=== PATIENT | female | born 1950 | race Caucasian/White ===

== ENCOUNTER 2016-12-24 10:06 | Outpatient (CLI) | payer MEDICARE, OTHER ==
--- NOTE | 2016-12-25 18:45 | Mammography Report ---
DIGITAL SCREENING MAMMOGRAM: 12/24/2016 CLINICAL INDICATION: A 66-year-old with history of benign biopsy for screening. COMPARISON: 06/2015, 08/2014, 07/2013, 03/2012, 12/2010, 02/2008, 11/2006. TECHNIQUE: Routine CC and MLO projections were obtained of the breasts. FINDINGS: The breasts again demonstrate scattered fibroglandular densities bilaterally. Coarse and punctate, typically benign calcifications are present. Postbiopsy changes in the right breast are st able. No suspicious masses, clustered microcalcifications, or regions of architectural distortion ar e identified. IMPRESSION: BENIGN FINDINGS. RECOMMENDATION: Routine annual screening unless otherwise clinically indicated. BI-RADS category 2, benign findings. STANDARD QUALIFYING STATEMENTS 1. This examination was reviewed with the aid of Computer-Aided Detection (CAD). 2. A negative or benign imaging report should not delay biopsy if clinically suspicious findings are present. Consider surgical consultation if warranted. More than 5% of cancers are not identified by i maging. 3. Dense breasts may obscure an underlying neoplasm. JOB #: [id number] EXT JOB #:[id number]
== END 2016-12-24 10:07 | disposition home or self-care (01) ==
LOC: DI.N 10:06
PROVIDERS: ATTEND Physician Assistant Medical
DX: Z12.31 Encounter for screening mammogram for malignant neoplasm of breast (principal)
CPT/HCPCS: 77067

== ENCOUNTER 2016-12-25 07:30 | Outpatient (CLI) | payer MEDICARE, OTHER ==
[2016-12-25 12:46] LABS: BASOPHILS # (AUTO) 0.1 10^3/uL (0.0-0.1); BASOPHILS % (AUTO) 1.1 %; EOSINOPHILS # (AUTO) 0.1 10^3/uL (0.0-0.7); HCT - HEMATOCRIT 42.2 % (37.0-47.0); HGB - HEMOGLOBIN 14.2 g/dL (12.0-16.0); LYMPHOCYTES # (AUTO) 2.5 10^3/uL (1.5-3.5); LYMPHOCYTES % (AUTO) 38.7 %; MEAN CORPUSCULAR HEMOGLOBIN 29.9 pg (27.0-31.0); MEAN CORPUSCULAR HGB CONC 33.7 g/dL (32.0-36.0); MEAN CORPUSCULAR VOLUME 88.6 fL (81.0-99.0); MEAN PLATELET VOLUME 9.4 fL (7.9-10.8); MONOCYTES # (AUTO) 0.5 10^3/uL (0.0-1.0); MONOCYTES % (AUTO) 8.4 %; NEUTROPHILS # (AUTO) 3.2 10^3/uL (1.5-6.6); NEUTROPHILS % (AUTO) 49.8 %; NUCLEATED RED BLOOD CELLS AUTO 0.3 /100WBC; RED BLOOD COUNT 4.76 10^6/uL (4.20-5.40); RED CELL DISTRIBUTION WIDTH 14.1 % (12.0-15.0); UNCORRECTED WHITE BLOOD COUNT 6.5 x10^3/uL; WHITE BLOOD COUNT 6.5 x10^3/uL (4.8-10.8)
[2016-12-25 13:27] LABS: ALBUMIN/GLOBULIN RATIO 1.3 (1.0-2.2); BILIRUBIN,TOTAL 0.5 mg/dL (0.2-1.0); CALCIUM 9.2 mg/dL (8.5-10.3); CREATININE 0.9 mg/dL (0.4-1.0); POTASSIUM 3.9 mmol/L (3.5-5.0)
== END 2016-12-25 07:31 | disposition home or self-care (01) ==
LOC: LAB.WCP 07:30
PROVIDERS: ATTEND Physician Assistant Medical
DX: M81.0 Age-related osteoporosis without current pathological fracture (principal); I83.90 Asymptomatic varicose veins of unspecified lower extremity; N60.19 Diffuse cystic mastopathy of unspecified breast; N95.1 Menopausal and female climacteric states; N95.2 Postmenopausal atrophic vaginitis
CPT/HCPCS: 36415; 80053; 85025

== ENCOUNTER 2018-01-30 08:59 | Outpatient (CLI) | payer MEDICARE, OTHER ==
--- NOTE | 2018-02-02 13:15 | Mammography Report ---
Reason: BILAT SCREEN WITHOUT ANAYELI Procedure Date: 01/30/2018 Accession Number: [id number] / [id number] Procedure: MARIO - Screening Mammo Dig Bilat CPT Code: FULL RESULT: EXAM: Screening Mammo Dig Bilat DATE: 01/30/2018 9:48 AM CLINICAL HISTORY: Routine screening TECHNIQUE: Bilateral CC and MLO views were obtained. COMPARISON: 12/24/2016, 06/16/2015, 08/23/2014, 07/30/2013 and 03/19/2012 FINDINGS: There are scattered fibroglandular densities. There is no significant interval change on the right. No suspicious masses, clustered microcalcifications, or regions of architectural distortion are identified. On the left there is a small area of possible architectural distortion in the 12:00 position middle third versus incomplete compression. Suggest further evaluation by true lateral and spot compression views. Otherwise negative left breast. IMPRESSION: Negative right breast. Needs additional evaluation left breast. RECOMMENDATION: Spot compression and true lateral views left breast. BIRADS CATEGORY 0: Needs additional evaluation STANDARD QUALIFYING STATEMENTS: 1. This examination was reviewed with the aid of Computer-Aided Detection (CAD). 2. A negative or benign imaging report should not delay biopsy if clinically suspicious findings are present. Consider surgical consultation if warrented. More than 5% of cancers are not identified by imaging. 3. Dense breasts may obscure an underlying neoplasm.
== END 2018-01-30 09:00 | disposition home or self-care (01) ==
LOC: DI 08:59
DX: Z12.31 Encounter for screening mammogram for malignant neoplasm of breast (principal)
CPT/HCPCS: 77067

== ENCOUNTER 2018-02-20 13:08 | Outpatient (CLI) | payer MEDICARE, OTHER ==
--- NOTE | 2018-02-20 14:24 | Mammography Report ---
Reason: ABN MAMMO - LT SPEC VIEWS Procedure Date: 02/20/2018 Accession Number: [id number] / [id number] Procedure: MARIO - Diag Special Views Dig LT CPT Code: FULL RESULT: EXAM: Diag Special Views Dig LT DATE: 02/20/2018 2:09 PM CLINICAL HISTORY: Recalled from recent screening exam for possible left breast distortion. TECHNIQUE: Left CC and MLO and lateral views obtained COMPARISON: 01/30/2018 through 03/08/2008 FINDINGS: The breasts demonstrate scattered fibroglandular densities bilaterally. Area of possible distortion seen in the posterior left breast on recent screening exam does not persist with additional views consistent with summation of normal tissue. There are no suspicious masses, calcifications or areas of distortion. IMPRESSION: Negative examination RECOMMENDATION: Routine annual screening unless otherwise clinically indicated. BI-RADS CATEGORY 1: Negative STANDARD QUALIFYING STATEMENTS: 1. This examination was not reviewed with the aid of Computer-Aided Detection (CAD). 2. A negative or benign imaging report should not preclude biopsy if clinically suspicious findings are present. 3. Dense breasts may obscure an underlying neoplasm. 4. This examination was reviewed with the aid of 3D breast imaging (tomosynthesis).
== END 2018-02-20 13:09 | disposition home or self-care (01) ==
LOC: DI 13:08
PROVIDERS: ATTEND Physician Assistant Medical
DX: R92.8 Other abnormal and inconclusive findings on diagnostic imaging of breast (principal)

== ENCOUNTER 2019-02-23 10:10 | Outpatient (CLI) | payer MEDICARE, OTHER ==
--- NOTE | 2019-02-23 12:50 | Mammography Report ---
Reason: ROUTINE MAMMO Procedure Date: 02/23/2019 Accession Number: [id number] / [id number] Procedure: MGN - Screening Mammo Dig Bilat CPT Code: Final Report FULL RESULT: EXAM: Screening Mammo Dig Bilat DATE: 02/23/2019 10:34 AM CLINICAL HISTORY: Routine screening. No reported personal or family history of breast cancer. History of prior benign right breast biopsy. TECHNIQUE: (B) - Bilateral CC and MLO views were obtained. COMPARISON: 01/30/2018 through 12/31/2010. PARENCHYMAL PATTERN: (A) - The breasts demonstrate scattered fibroglandular densities bilaterally. FINDINGS: Bilateral breasts: There are no suspicious masses, calcifications, or areas of distortion. IMPRESSION: Negative examination. BI-RADS category 1. RECOMMENDATION: (ANNUAL) - Recommend routine annual screening mammography. BI-RADS CATEGORY: (1) - Negative. STANDARD QUALIFYING STATEMENTS: 1. This examination was not reviewed with the aid of Computer-Aided Detection (CAD). 2. A negative or benign imaging report should not preclude biopsy if clinically suspicious findings are present. 3. Dense breasts may obscure an underlying neoplasm. 4. This examination was reviewed without the aid of 3D breast imaging (tomosynthesis).
== END 2019-02-23 10:11 | disposition home or self-care (01) ==
LOC: DI.N 10:10
DX: Z12.31 Encounter for screening mammogram for malignant neoplasm of breast (principal)
CPT/HCPCS: 77067

== ENCOUNTER 2019-04-16 08:00 | Outpatient (CLI) | payer MEDICARE, OTHER | END 2019-04-16 23:59 | disposition home or self-care (01) | LOC: LAB.R 08:00 | PROVIDERS: ATTEND Family Medicine | DX: N39.0 Urinary tract infection, site not specified (principal); R39.15 Urgency of urination | CPT/HCPCS: 81002; 87086 ==

== ENCOUNTER 2019-06-03 08:00 | Outpatient (CLI) | payer MEDICARE, OTHER ==
[2019-06-03 12:11] LABS: BASOPHILS # (AUTO) 0.1 10^3/uL (0.0-0.1); BASOPHILS % (AUTO) 1.3 %; EOSINOPHILS # (AUTO) 0.1 10^3/uL (0.0-0.7); EOSINOPHILS % (AUTO) 1.9 %; HGB - HEMOGLOBIN 14.5 g/dL (12.0-16.0); LYMPHOCYTES # (AUTO) 2.4 10^3/uL (1.5-3.5); LYMPHOCYTES % (AUTO) 38.1 %; MEAN CORPUSCULAR HEMOGLOBIN 29.5 pg (27.0-31.0); MEAN CORPUSCULAR HGB CONC 32.4 g/dL (32.0-36.0); MEAN CORPUSCULAR VOLUME 91.2 fL (81.0-99.0); MONOCYTES # (AUTO) 0.6 10^3/uL (0.0-1.0); MONOCYTES % (AUTO) 8.9 %; NEUTROPHILS # (AUTO) 3.1 10^3/uL (1.5-6.6); NEUTROPHILS % (AUTO) 49.6 %; PLT - PLATELET COUNT 236 10^3/uL (130-450); RED BLOOD COUNT 4.91 10^6/uL (4.20-5.40); RED CELL DISTRIBUTION WIDTH 14.1 % (12.0-15.0); WHITE BLOOD COUNT 6.3 x10^3/uL (4.8-10.8)
[2019-06-03 12:34] LABS: ALBUMIN 3.9 g/dL (3.2-5.5); ALBUMIN/GLOBULIN RATIO 1.1 (1.0-2.2); ALKALINE PHOSPHATASE 42 IU/L (42-121); ALT ALANINE AMINOTRANSFERASE 20 IU/L (10-60); AST ASPARTATE AMINOTRANSFERASE 26 IU/L (10-42); BUN - BLOOD UREA NITROGEN 12 mg/dL (6-20); CALCIUM 9.4 mg/dL (8.5-10.3); CARBON DIOXIDE - CO2 26 mmol/L (21-32); CHLORIDE 107 mmol/L (101-111); CHOL/HDL RATIO 2.6 (<4.4); CHOLESTEROL 157 mg/dL; CREATININE 0.9 mg/dL (0.4-1.0); GFR - MDRD 62 (>89); GLUCOSE 100 mg/dL (70-100); HDL CHOLESTEROL 60 mg/dL; LDL CHOLESTEROL,CALCULATED 79 mg/dL; LDL/HDL RATIO 1.3 (<4.4); SODIUM 140 mmol/L (135-145); TOTAL PROTEIN 7.4 g/dL (6.7-8.2); VLDL CHOLESTEROL 18 mg/dL
== END 2019-06-03 23:59 | disposition home or self-care (01) ==
LOC: LAB.WCP 08:00
PROVIDERS: ATTEND Physician Assistant Medical
DX: R06.09 Other forms of dyspnea (principal); E03.9 Hypothyroidism, unspecified; N39.0 Urinary tract infection, site not specified
CPT/HCPCS: 36415; 80053; 80061; 83721; 84443; 85025

== ENCOUNTER 2019-06-03 09:26 | Outpatient (CLI) | payer MEDICARE, OTHER ==
--- NOTE | 2019-06-03 16:13 | XRAY Report ---
Reason: DYSPNEA ON EXERTION Procedure Date: 06/03/2019 Accession Number: [id number] / [id number] Procedure: WCP - Chest 2 View X-Ray CPT Code: 18625 Final Report FULL RESULT: EXAM: CHEST RADIOGRAPHY EXAM DATE: 06/03/2019 09:26 AM. CLINICAL HISTORY: DYSPNEA ON EXERTION. COMPARISON: None. TECHNIQUE: 2 views. FINDINGS: Lungs/Pleura: No focal opacities evident. No pleural effusion. No pneumothorax. Normal volumes. Mediastinum: The cardiac silhouette size is normal. Tortuous thoracic aorta. Other: Decreased bone mineralization with multilevel thoracic spondylosis. IMPRESSION: No radiographic evidence of acute cardiopulmonary disease. RADIA
== END 2019-06-03 23:59 | disposition home or self-care (01) ==
LOC: DI.WCP 09:26
PROVIDERS: ATTEND Physician Assistant Medical
DX: R06.09 Other forms of dyspnea (principal); E03.9 Hypothyroidism, unspecified; N39.0 Urinary tract infection, site not specified
CPT/HCPCS: 36415; 71046; 80053; 80061; 83721; 84443; 85025

== ENCOUNTER 2019-06-10 10:24 | Outpatient (CLI) | payer MEDICARE, OTHER | END 2019-06-10 10:25 | disposition home or self-care (01) | LOC: DI 10:24 | PROVIDERS: ATTEND Physician Assistant Medical | DX: R06.09 Other forms of dyspnea (principal) | CPT/HCPCS: 93306 ==

== ENCOUNTER 2020-01-21 07:00 | Outpatient (CLI) | payer MEDICARE, OTHER | END 2020-01-21 23:59 | disposition home or self-care (01) | LOC: LAB.R 07:00 | PROVIDERS: ATTEND Nurse Practitioner Family | DX: R39.15 Urgency of urination (principal) | CPT/HCPCS: 87086 ==

== ENCOUNTER 2020-03-20 10:16 | Outpatient (CLI) | payer MEDICARE, OTHER ==
--- NOTE | 2020-03-21 08:04 | Mammography Report ---
BILATERAL DIGITAL SCREENING MAMMOGRAM 3D/2D: 03/20/2020 CLINICAL: Routine screening. Comparison is made to exams dated: 02/23/2019 mammogram, 02/20/2018 mammogram, 01/30/2018 mammogram, 12/24/2016 mammogram, 06/16/2015 mammogram, and 08/23/2014 mammogram - [facility]. The tissue of both breasts is predominantly fatty. There is a new 0.7 cm focal asymmetry with an indistinct margin in the right breast middle depth supe rior region adjacent to a scar marker seen on the mediolateral oblique view only. No other significant masses, calcifications, or other findings are seen in either breast. IMPRESSION: INCOMPLETE: NEEDS ADDITIONAL IMAGING EVALUATION The new 0.7 cm focal asymmetry in the right breast is indeterminate. Additional views with possible ultrasound are recommended. This exam was interpreted at Station ID: [id number]. NOTE: For mammograms, a report in lay terms will be sent to the patient. Approximately 15% of breast malignancies will not be visualized mammographically. In the management of a palpable breast mass, a negative mammogram must not discourage biopsy of a clinically suspicious lesion. Electronically Signed By: Piero Quinteros acr/:03/20/2020 14:47:19 ACR BI-RADS Category 0: Incomplete 3340F PARENCHYMAL PATTERN: (F) - The breast(s) demonstrate(s) diffuse fatty replacement. BI-RADS CATEGORY: (0) - 0 Mammo and [place] [id number] Immediate follow-up LATERALITY: (L)
== END 2020-03-20 10:17 | disposition home or self-care (01) ==
LOC: DI.N 10:16
DX: Z12.31 Encounter for screening mammogram for malignant neoplasm of breast (principal); R92.8 Other abnormal and inconclusive findings on diagnostic imaging of breast

== ENCOUNTER 2020-05-01 11:17 | Outpatient (CLI) | payer MEDICARE, OTHER ==
--- NOTE | 2020-05-02 09:06 | Mammography Report ---
UNILATERAL RIGHT DIGITAL DIAGNOSTIC MAMMOGRAM 3D/2D: 05/01/2020 CLINICAL: Patient returns today to evaluate a focal asymmetry in the right breast. Comparison is made to exams dated: 03/20/2020 mammogram, 02/23/2019 mammogram, 02/20/2018 mammogram, a nd 01/30/2018 mammogram - [facility]. The tissue of right breast is predominantly fatty. Redemonstration of previously described 0.6 cm focal asymmetry with an indistinct margin in the right breast middle depth superior region seen on the mediolateral oblique view only. This is less promin ent and decreased in size. No other significant masses or calcifications are seen in the breast. IMPRESSION: INCOMPLETE: NEEDS ADDITIONAL IMAGING EVALUATION The 0.6 cm focal asymmetry in the right breast is indeterminate. An ultrasound is recommended for fu rther evaluation and is scheduled to immediately follow this examination. This exam was interpreted at Station ID: [id number]. NOTE: For mammograms, a report in lay terms will be sent to the patient. Approximately 15% of breast malignancies will not be visualized mammographically. In the management of a palpable breast mass, a negative mammogram must not discourage biopsy of a clinically suspicious lesion. Electronically Signed By: Matias Presley M.D. aty/:05/01/2020 12:36:39 ACR BI-RADS Category 0: Incomplete 3340F PARENCHYMAL PATTERN: (F) - The breast(s) demonstrate(s) diffuse fatty replacement. BI-RADS CATEGORY: (0) - 0 Ultrasound [id number] Immediate follow-up LATERALITY: (R)
--- NOTE | 2020-05-02 09:06 | Ultrasound Report ---
LIMITED ULTRASOUND OF RIGHT BREAST: 05/01/2020 CLINICAL: Patient returns today to evaluate a focal asymmetry in the right breast. Comparison is made to exams dated: 05/01/2020 mammogram, 03/20/2020 mammogram, 02/23/2019 mammogram, 04/22/2017 mammogram, 01/30/2018 mammogram, and 12/24/2016 mammogram - [facility]. Real-time ultrasound of the right breast 8-10 o'clock region was performed. Brink scale images of the real-time examination were reviewed. No significant abnormalities were seen sonographically in the right breast. The asymmetry seen on ma mmographic evaluation is in close proximity to site of previous benign excisional biopsy. There are s cattered foci of dense fibroglandular tissue in this area. IMPRESSION: PROBABLY BENIGN There is no abnormality seen in the right breast to correspond with the mammography finding which lik anamaria represents normal dense fibroglandular tissue. A follow-up right mammogram with possible right ultrasound in 6 months is recommended to demonstrate stability. Findings and recommendations were conveyed to the patient during today's evaluation. This exam was interpreted at Station ID: [id number]. Electronically Signed By: Matias Presley M.D. aty/:05/01/2020 12:39:37 Ultrasound BI-RADS: 3 Probably benign BI-RADS CATEGORY: (3) - 3 Mammo and [place] [id number] 6 month follow-up LATERALITY: (R)
== END 2020-05-01 11:18 | disposition home or self-care (01) ==
LOC: DI 11:17
PROVIDERS: ATTEND Physician Assistant Medical
DX: R92.8 Other abnormal and inconclusive findings on diagnostic imaging of breast (principal)

== ENCOUNTER 2020-06-05 09:55 | Outpatient (CLI) | payer MEDICARE, OTHER ==
[2020-06-05] MEDS ORDERED: IOVERSOL 320 100 ML VIAL IVP ONE ×2 (10:14→14:35)
--- NOTE | 2020-06-05 15:56 | CT Report ---
PROCEDURE: CHEST W INDICATIONS: DYSPNEA ON EXERTION CONTRAST: IV CONTRAST: Optiray 320 ml: 100 PO CONTRAST: *NO PO CONTRAST TECHNIQUE: After the administration of intravenous contrast, 5 mm thick sections acquired from the pulmonary api chanelle to the posterior costophrenic angles. 7 mm thick coronal MIP reformats were acquired. For radia tion dose reduction, the following was used: automated exposure control, adjustment of mA and/or kV according to patient size. COMPARISON: None. FINDINGS: Image quality: Excellent. Lungs and pleura: There is a 7 mm spiculated nodule in the extreme left lung base. Reference image 18 05/18. No acute air space opacities. No pleural effusions or pneumothorax. Central and peripheral ai rways are patent and normal in caliber. Mediastinum: Heart size is normal. No pericardial effusion. No mediastinal or hilar adenopathy by size criteria. Thoracic aorta and central pulmonary arteries are normal in size. Esophagus is gayle l in caliber. No hiatal hernia. Bones and chest wall: No suspicious bony lesions. No vertebral body compression fractures. No axil michelle or supraclavicular adenopathy by size criteria. Thyroid gland is somewhat heterogeneous with a small, subcentimeter right thyroid nodule.. Abdomen: Visualized upper abdominal solid organs appear normal. Upper abdominal bowel loops are nor mal in caliber. IMPRESSION: 1. Spiculated 7 mm nodule, left lower lobe. 2. No other pulmonary nodules. 3. No evidence of acute pulmonary process. Comment: Due to the spiculated nature of the nodule, it is concerning for a possible subcentimeter br onchogenic carcinoma. At this size, it may be too small to demonstrate increased FDG activity by PET/ CT. Therefore, would recommend 3 month follow-up CT. If the 3 month follow-up CT is stable, would fol low-up again in 12 months time. Reviewed by: Handy Giron MD on 06/05/2020 3:54 PM PST Approved by: Handy Giron MD on 06/05/2020 3:54 PM PST Station ID: [id number]
== END 2020-06-05 09:56 | disposition home or self-care (01) ==
LOC: DI 09:55
PROVIDERS: ATTEND Physician Assistant Medical
DX: R06.09 Other forms of dyspnea (principal); R91.1 Solitary pulmonary nodule
CPT/HCPCS: 36415; 71260; 80048; Q9967

== ENCOUNTER 2020-07-13 07:20 | Outpatient (CLI) | payer MEDICARE, OTHER ==
[2020-07-13 12:02] LABS: ALBUMIN/GLOBULIN RATIO 1.2 (1.0-2.2); ALKALINE PHOSPHATASE 51 IU/L (42-121); ALT ALANINE AMINOTRANSFERASE 25 IU/L (10-60); AST ASPARTATE AMINOTRANSFERASE 29 IU/L (10-42); BILIRUBIN,TOTAL 0.5 mg/dL (0.2-1.0); BUN - BLOOD UREA NITROGEN 13 mg/dL (6-20); CALCIUM 9.3 mg/dL (8.5-10.3); CARBON DIOXIDE - CO2 27 mmol/L (21-32); CHLORIDE 105 mmol/L (101-111); CHOL/HDL RATIO 2.6 (<4.4); CHOLESTEROL 159 mg/dL; GFR - MDRD 55 (>89); GLUCOSE 105 mg/dL (70-100); HDL CHOLESTEROL 62 mg/dL; LDL CHOLESTEROL,CALCULATED 82 mg/dL; LDL/HDL RATIO 1.3 (<4.4); POTASSIUM 4.1 mmol/L (3.5-5.0); SODIUM 141 mmol/L (135-145); TOTAL PROTEIN 7.4 g/dL (6.7-8.2); TRIGLYCERIDES 76 mg/dL; VLDL CHOLESTEROL 15 mg/dL
[2020-07-13 12:07] LABS: BASOPHILS # (AUTO) 0.1 10^3/uL (0.0-0.1); BASOPHILS % (AUTO) 1.2 %; EOSINOPHILS # (AUTO) 0.2 10^3/uL (0.0-0.7); EOSINOPHILS % (AUTO) 3.3 %; HCT - HEMATOCRIT 44.4 % (37.0-47.0); HGB - HEMOGLOBIN 14.4 g/dL (12.0-16.0); LYMPHOCYTES # (AUTO) 1.6 10^3/uL (1.5-3.5); LYMPHOCYTES % (AUTO) 31.4 %; MEAN CORPUSCULAR HEMOGLOBIN 29.3 pg (27.0-31.0); MEAN CORPUSCULAR HGB CONC 32.4 g/dL (32.0-36.0); MEAN CORPUSCULAR VOLUME 90.2 fL (81.0-99.0); MEAN PLATELET VOLUME 10.5 fL (7.9-10.8); MONOCYTES # (AUTO) 0.9 10^3/uL (0.0-1.0); MONOCYTES % (AUTO) 16.7 %; NEUTROPHILS # (AUTO) 2.4 10^3/uL (1.5-6.6); NEUTROPHILS % (AUTO) 46.8 %; PLT - PLATELET COUNT 212 10^3/uL (130-450); RED BLOOD COUNT 4.92 10^6/uL (4.20-5.40); RED CELL DISTRIBUTION WIDTH 14.2 % (12.0-15.0); WHITE BLOOD COUNT 5.1 x10^3/uL (4.8-10.8)
--- OUTSIDE RECORDS SUMMARY | 2020-07-19 02:18 | EXTERNAL MEDICAL SUMMARY RPT | Continuity of Care Document ---
:1950 Demographics Phone Unavailable Preferred Language Vincentian Marital Status Unknown Quaker Affiliation Unknown Race Unknown Ethnic Group Unknown Author Organization [place] Address [address] [place] [address] Phone Care Team Providers Name Role Phone Miscellaneous Unavailable Unavailable Problems date description facility [id number] Contact with and (suspected) exposure t o other viral [facility] communi [id number] Encounter for screening for other viral diseases [facility] Social History date description facility [id number]
== END 2020-07-13 23:59 | disposition home or self-care (01) ==
LOC: LAB.WCP 07:20
PROVIDERS: ATTEND Physician Assistant Medical
DX: R06.09 Other forms of dyspnea (principal)
CPT/HCPCS: 36415; 80053; 80061; 83721; 85025

== ENCOUNTER 2020-09-07 10:39 | Outpatient (CLI) | payer MEDICARE, OTHER ==
[2020-09-07 11:05] LABS: CALCIUM 9.3 mg/dL (8.5-10.3); CREATININE 0.8 mg/dL (0.4-1.0); POTASSIUM 4.7 mmol/L (3.5-5.0)
[2020-09-07] MEDS ORDERED: IOVERSOL 320 100 ML VIAL IVP ONE ×2 (12:22→12:57)
--- NOTE | 2020-09-07 17:14 | CT Report ---
PROCEDURE: CHEST W INDICATIONS: PULMONARY NODULE CONTRAST: IV CONTRAST: Optiray 320 ml: 100 PO CONTRAST: *NO PO CONTRAST TECHNIQUE: After the administration of intravenous contrast, 5 mm thick sections acquired from the pulmonary api chanelle to the posterior costophrenic angles. 7 mm thick coronal MIP reformats were acquired. For radia tion dose reduction, the following was used: automated exposure control, adjustment of mA and/or kV according to patient size. COMPARISON: 06/05/2020. FINDINGS: Image quality: Excellent. Lungs and pleura: A mildly spiculated subpleural pulmonary nodule in the left lower lobe is minimally increased in size compared to the previous study. On previous image 182/4 it measured 7 mm. On curre nt image 212/6 and measures 8 mm. Mediastinum: Heart size is normal. No pericardial effusion. No mediastinal or hilar adenopathy by size criteria. Thoracic aorta and central pulmonary arteries are normal in size. Esophagus is gayle l in caliber. No hiatal hernia. Bones and chest wall: No suspicious bony lesions. No vertebral body compression fractures. No axil michelle or supraclavicular adenopathy by size criteria. The thyroid has a tiny 3 mm nodule in the anteri or aspect of the right lobe. Abdomen: Visualized upper abdominal solid organs appear normal. Upper abdominal bowel loops are nor mal in caliber. IMPRESSION: Slight interval growth of a mildly spiculated left lower lobe pulmonary nodule over the past 3 months , previously measuring 7 mm and now measuring 8 mm. This is suspicious for a very small bronchogenic carcinoma. Current options include PET CT versus CT guided biopsy versus 3 month follow-up chest CT v ersus wedge resection. Comment: The nodule is at the lower limits of size for PET CT (indicated for nodules of 8 mm or great er), and is at the lower size limits of likely technical success for CT-guided biopsy. Would recommen d PET/CT instead of CT biopsy at this point. CLINICAL RECOMMENDATION STATEMENTS: In patients <35 years with an ITN detected on CT, MRI, or extrathyroidal ultrasound, the Committee re commends further evaluation with dedicated thyroid ultrasound if the nodule is ?1 cm and has no suspi cious imaging features, and if the patient has normal life expectancy. In patients ?35 years with an ITN detected on CT, MRI, or extrathyroidal ultrasound, the Committee re commends further evaluation with dedicated thyroid ultrasound if the nodule is ?1.5 cm and has no keith picious imaging features, and if the patient has normal life expectancy. (ACR, 2014) Reviewed by: Handy Giron MD on 09/07/2020 5:13 PM PDT Approved by: Handy Giron MD on 09/07/2020 5:13 PM PDT Station ID: [id number]
== END 2020-09-07 10:40 | disposition home or self-care (01) ==
LOC: LAB 10:39 → DI 10:40
PROVIDERS: ATTEND Physician Assistant Medical
DX: J98.4 Other disorders of lung (principal); R91.1 Solitary pulmonary nodule
CPT/HCPCS: 36415; 71260; 80048; Q9967

== ENCOUNTER 2020-09-14 08:00 | Outpatient (CLI) | payer MEDICARE, OTHER | END 2020-09-14 23:59 | disposition home or self-care (01) | LOC: LAB.WCP 08:00 | PROVIDERS: ATTEND Physician Assistant Medical | DX: R06.02 Shortness of breath (principal) | CPT/HCPCS: 36415; 83880 ==

== ENCOUNTER 2021-01-17 08:52 | Outpatient (CLI) | payer MEDICARE, OTHER ==
--- NOTE | 2021-01-18 11:49 | Mammography Report ---
BILATERAL DIGITAL DIAGNOSTIC MAMMOGRAM 3D/2D: 01/17/2021 CLINICAL: Patient returns for a 6 month follow up of the right breast. Comparison is made to exams dated: 05/01/2020 ultrasound, 05/01/2020 mammogram, 03/20/2020 mammogram, 1 04/25/2018 mammogram, 02/20/2018 mammogram, and 01/30/2018 mammogram - [facility]. T here are scattered fibroglandular elements in both breasts. The oval asymmetry with indistinct margins in the right breast middle depth superior region seen on t he mediolateral oblique view only is less prominent compared to the prior study from 03/20/2020 and si milar to the previous study from 02/23/2019. No other significant masses, calcifications, or other findings are seen in either breast. IMPRESSION: BENIGN There is no mammographic evidence of malignancy. A 1 year screening mammogram is recommended. This exam was interpreted at Station ID: [id number]. NOTE: For mammograms, a report in lay terms will be sent to the patient. Approximately 15% of breast malignancies will not be visualized mammographically. In the management of a palpable breast mass, a negative mammogram must not discourage biopsy of a clinically suspicious lesion. Electronically Signed By: Tripp Arce M.D. ddp/:01/17/2021 09:30:24 ACR BI-RADS Category 2: Benign Finding(s) 3342F PARENCHYMAL PATTERN: (A) - The breast(s) demonstrate(s) scattered fibroglandular densities. BI-RADS CATEGORY: (2) - 2 RECOMMENDATION: (ANNUAL) - Recommend routine annual screening mammography. [id number] 1 year screening LATERALITY: (B)
== END 2021-01-17 08:53 | disposition home or self-care (01) ==
LOC: DI 08:52
PROVIDERS: ATTEND Physician Assistant Medical
DX: R92.8 Other abnormal and inconclusive findings on diagnostic imaging of breast (principal)

== ENCOUNTER 2021-01-24 09:22 | Outpatient (CLI) | payer MEDICARE, OTHER ==
[2021-01-24 10:00] LABS: CREATININE 0.8 mg/dL (0.4-1.0)
--- NOTE | 2021-01-24 11:28 | CT Report ---
PROCEDURE: CHEST W INDICATIONS: PULMONARY NODULE CONTRAST: IV CONTRAST: Optiray 320 ml: 100 PO CONTRAST: *NO PO CONTRAST TECHNIQUE: After the administration of intravenous contrast, 1 mm axial images were acquired from the pulmonary apices through the posterior costophrenic angles. Axial 5 mm soft tissue kernel reconstructions were performed as well as 8 mm axial MIP and coronal and sagittal 5 mm reformations. For radiation dose reduction, the following was used: automated exposure control, adjustment of mA and/or kV according to patient size. COMPARISON: Prior studies dating back to June 05, 2020 FINDINGS: CT CHEST: Thyroid: Homogeneous. Vasculature: The thoracic aorta and arch vasculature have a normal contrasted appearance and are norm al size and contour. No evidence for dissection. Heart: No cardiomegaly or significant pericardial effusion. Mediastinum: No pathologic lymph node enlargement by size criteria. Small hiatal hernia. Lung/pleura: No pleural effusion, consolidation, or pneumothorax. Stable 7.2 mm nodule in the left lo wer lobe (i.e. series 4, image 213). Tracheobronchial tree: Patent. Upper abdomen: No significant abnormality. Decreased attenuation liver, suggesting hepatic steatosis. Bones: No significant abnormality. 1.5 cm lucent lesion in the right aspect of L1, most consistent wi th a hemangioma. Chest wall: The chest wall and axilla are within normal limits. IMPRESSION: Stable pulmonary nodule in the left lower lobe. Fleischner criteria for lung follow-up: >6-8Initial f ollow-up CT at 6-12 mo, then 18-24 mo if no change. Initial follow-up CT at 3-6 mo, then 9-12 mo and 24 mo if no change. Reviewed by: Umesh Schofield MD on 01/24/2021 11:27 AM PDT Approved by: Umesh Schofield MD on 01/24/2021 11:27 AM PDT Station ID: [id number]
[2021-01-24] MEDS ORDERED: IOVERSOL 320 100 ML VIAL IVP ONE (14:00)
== END 2021-01-24 09:23 | disposition home or self-care (01) ==
LOC: LAB 09:22
PROVIDERS: ATTEND Physician Assistant Medical
DX: R91.1 Solitary pulmonary nodule (principal)
CPT/HCPCS: 36415; 82565

== ENCOUNTER 2021-06-23 09:38 | Outpatient (CLI) | payer MEDICARE, OTHER ==
[2021-06-23] MEDS ORDERED: IOVERSOL 320 100 ML VIAL IVP ONE ×2 (10:00→10:28)
--- NOTE | 2021-06-23 14:28 | CT Report ---
PROCEDURE: CHEST W INDICATIONS: PULMONARY NODULE CONTRAST: IV CONTRAST: Optiray 320 ml: 100 PO CONTRAST: *NO PO CONTRAST TECHNIQUE: After the administration of intravenous contrast, 1 mm axial images were acquired from the pulmonary apices through the posterior costophrenic angles. Axial 5 mm soft tissue kernel reconstructions were performed as well as 8 mm axial MIP and coronal and sagittal 5 mm reformations. For radiation dose reduction, the following was used: automated exposure control, adjustment of mA and/or kV according to patient size. COMPARISON: CT chest 01/24/2021, 06/05/2020. FINDINGS: Image quality: Excellent. Lungs and pleura: Left lower lobe pulmonary nodule measuring 0.8 x 0.7 cm, (4/193), previously 0.7 x 0.5 cm on 06/05/2020. No new pulmonary nodules. Minimal deep tendon atelectasis. No acute air space o pacities. No pleural effusions or pneumothorax. Central and peripheral airways are patent and gayle l in caliber. Mediastinum: Heart size is normal. No pericardial effusion. No mediastinal or hilar adenopathy by size criteria. Thoracic aorta and central pulmonary arteries are normal in size. Esophagus is gayle l in caliber. Small hiatal hernia. Bones and chest wall: No suspicious bony lesions. Benign L1 intraosseous hemangioma. No vertebral jess dy compression fractures. No axillary or supraclavicular adenopathy by size criteria. The thyroid i s normal in size and there are no incidental findings. Abdomen: Visualized upper abdominal solid organs appear normal. Upper abdominal bowel loops are nor mal in caliber. Hepatic steatosis. IMPRESSION: 1. Left lower lobe pulmonary nodule measuring 0.8 cm. This is slightly increased in size compared to last year May 2020. -Recommend follow-up CT chest in 6-12 months depending on clinical risk factors. 2. No adenopathy. Reviewed by: Kyle Moore MD on 06/23/2021 1:26 PM [facility] Approved by: Kyle Moore MD on 06/23/2021 1:26 PM [facility] Station ID: [id number]
== END 2021-06-23 09:39 | disposition home or self-care (01) ==
LOC: LAB 09:38
PROVIDERS: ATTEND Physician Assistant Medical
DX: R91.1 Solitary pulmonary nodule (principal)
CPT/HCPCS: 36415; 71260; 82565; Q9967

== ENCOUNTER 2021-07-16 07:59 | Outpatient (CLI) | payer MEDICARE, OTHER ==
[2021-07-16 12:18] LABS: BASOPHILS # (AUTO) 0.1 10^3/uL (0.0-0.1); BASOPHILS % (AUTO) 0.9 %; EOSINOPHILS # (AUTO) 0.2 10^3/uL (0.0-0.7); EOSINOPHILS % (AUTO) 2.7 %; HCT - HEMATOCRIT 44.2 % (37.0-47.0); HGB - HEMOGLOBIN 14.6 g/dL (12.0-16.0); LYMPHOCYTES # (AUTO) 1.8 10^3/uL (1.5-3.5); LYMPHOCYTES % (AUTO) 26.2 %; MEAN CORPUSCULAR HEMOGLOBIN 29.6 pg (27.0-31.0); MEAN CORPUSCULAR VOLUME 89.7 fL (81.0-99.0); MEAN PLATELET VOLUME 10.8 fL (7.9-10.8); MONOCYTES # (AUTO) 0.7 10^3/uL (0.0-1.0); MONOCYTES % (AUTO) 10.3 %; NEUTROPHILS % (AUTO) 59.5 %; PLT - PLATELET COUNT 222 10^3/uL (130-450); RED BLOOD COUNT 4.93 10^6/uL (4.20-5.40); RED CELL DISTRIBUTION WIDTH 13.9 % (12.0-15.0); WHITE BLOOD COUNT 6.7 x10^3/uL (4.8-10.8)
[2021-07-16 12:42] LABS: ALBUMIN 3.9 g/dL (3.2-5.5); ALBUMIN/GLOBULIN RATIO 1.1 (1.0-2.2); BILIRUBIN,TOTAL 0.9 mg/dL (0.2-1.0); CALCIUM 9.3 mg/dL (8.5-10.3); CREATININE 0.9 mg/dL (0.4-1.0); POTASSIUM 4.4 mmol/L (3.5-5.0); TOTAL PROTEIN 7.3 g/dL (6.7-8.2)
[2021-07-16 12:49] LABS: THYROID STIMULATING HORMONE 3.35 uIU/mL (0.34-5.60)
== END 2021-07-16 08:00 | disposition home or self-care (01) ==
LOC: LAB.N 07:59
PROVIDERS: ATTEND Physician Assistant Medical
DX: E03.9 Hypothyroidism, unspecified (principal); R73.9 Hyperglycemia, unspecified; R91.1 Solitary pulmonary nodule
CPT/HCPCS: 36415; 80053; 84443; 85025

== ENCOUNTER 2022-01-10 08:09 | Outpatient (CLI) | payer MEDICARE, OTHER ==
[2022-01-10 08:30] LABS: CREATININE 0.8 mg/dL (0.4-1.0)
--- NOTE | 2022-01-10 12:50 | CT Report ---
PROCEDURE: CHEST W INDICATIONS: PULMONARY NODULE CONTRAST: IV CONTRAST: Optiray 320 ml: 100 PO CONTRAST: *NO PO CONTRAST TECHNIQUE: After the administration of intravenous contrast, 1 mm axial images were acquired from the pulmonary apices through the posterior costophrenic angles. Axial 5 mm soft tissue kernel reconstructions were performed as well as 8 mm axial MIP and coronal and sagittal 5 mm reformations. For radiation dose reduction, the following was used: automated exposure control, adjustment of mA and/or kV according to patient size. COMPARISON: CT chest 06/23/2021, 01/24/2021, 09/07/2020, 06/05/2020, 06/03/2019, 05/01/2020 FINDINGS: Image quality: Excellent. Lungs and pleura: No acute air space opacities. No pleural effusions or pneumothorax. Central and peripheral airways are patent and normal in caliber. Previous nodule concerning on the left lower lo be on series 4 image 189 currently measures 8 mm x 6 mm compared to 8 mm x 7 mm on 06/23/2021. No new nodules are identified. Mediastinum: Heart size is enlarged. No pericardial effusion. No mediastinal or hilar adenopathy by size criteria. Thoracic aorta and central pulmonary arteries are normal in size. Esophagus is norm al in caliber. No hiatal hernia. Bones and chest wall: L1 osseous hemangiomas unchanged. No vertebral body compression fractures. No axillary or supraclavicular adenopathy by size criteria. The thyroid is normal in size and there are no incidental findings.. Abdomen: Incidental note of a retroaortic left renal vein. Visualized upper abdominal solid organs a ppear normal. Upper abdominal bowel loops are normal in caliber. IMPRESSION: Stable/minimally decreased appearance of 8 x 6 mm pulmonary nodule compared to 06/23/2021. It is noted that there was a slight interval increase in size on most recent prior exam. Recommend follow-up CT chest in 6-12 months depending on clinical risk factors. CLINICAL RECOMMENDATION STATEMENTS: In patients <35 years with an ITN detected on CT, MRI, or extrathyroidal ultrasound, the Committee re commends further evaluation with dedicated thyroid ultrasound if the nodule is "e1 cm and has no susp icious imaging features, and if the patient has normal life expectancy. In patients "e35 years with an ITN detected on CT, MRI, or extrathyroidal ultrasound, the Committee r ecommends further evaluation with dedicated thyroid ultrasound if the nodule is "e1.5 cm and has no s uspicious imaging features, and if the patient has normal life expectancy. (ACR, 2014) Reviewed by: Eduarda Valadez MD on 01/10/2022 12:49 PM PDT Approved by: Eduarda Valadez MD on 01/10/2022 12:49 PM PDT Station ID: [id number]
== END 2022-01-10 08:10 | disposition home or self-care (01) ==
LOC: LAB 08:09
PROVIDERS: ATTEND Family Medicine
DX: R91.1 Solitary pulmonary nodule (principal)
CPT/HCPCS: 36415; 71260; 82565; Q9967

== ENCOUNTER 2022-02-13 13:22 | Outpatient (CLI) | payer MEDICARE, OTHER ==
--- NOTE | 2022-02-13 15:30 | XRAY Report ---
PROCEDURE: Knee 3 View RT INDICATIONS: R KNEE PX TECHNIQUE: 3 views of the right knee were acquired. COMPARISON: None. FINDINGS: Bones: No acute fractures or dislocations. No suspicious bony lesions. There is mild narrowing of the medial femorotibial compartment joint space. Soft tissues: No joint effusion. No suspicious soft tissue calcifications. IMPRESSION: Mild medial compartment osteoarthrosis. No acute osseous abnormality. If symptoms persis t or there is continued clinical concern, further evaluation with MRI or CT may be helpful. Reviewed by: Radu Caceres MD on 02/13/2022 3:28 PM PDT Approved by: Radu Caceres MD on 02/13/2022 3:28 PM PDT Station ID: [id number]
== END 2022-02-13 13:23 | disposition home or self-care (01) ==
LOC: DI.N 13:22
PROVIDERS: ATTEND Physician Assistant Medical
DX: M17.11 Unilateral primary osteoarthritis, right knee (principal)